=== PATIENT | female | born 1980 | race Caucasian/White ===

== ENCOUNTER → 2017-01-02 | Outpatient (CLI) | payer BC ==
--- NOTE | 2017-01-02 11:09 | DI ---
XR ELBOW COMPLETE MIN 3VW,01/02/2017 10:30 AM: Clinical History: Left elbow pain Previous Exam: None at this facility. Findings: 3 views of the left elbow are obtained, and demonstrate anatomic alignment without fractures. Surroun ding soft tissues are unremarkable. There is no low joint effusion identified. Impression: No fracture. Recommend followup imaging in 7-10 days if pain persists or worsens.
== END ==
LOC: ORTHO 10:41
PROVIDERS: ATTEND Orthopaedic Surgery
DX: M25.522 Pain in left elbow (principal); S53.402A Unspecified sprain of left elbow, initial encounter; W00.0XXA Fall on same level due to ice and snow, initial encounter
CPT/HCPCS: 73080

== ENCOUNTER → 2017-01-15 | Outpatient (CLI) | payer BC ==
--- NOTE | 2017-01-16 08:50 | DI ---
MRI LEFT ELBOW SCAN, 01/15/2017 1:54 PM: Clinical History: Left elbow pain. Previous Exam: None at this facility. Technique: Axial, coronal, and sagittal PD and fat saturated PD. SPIR. There is no soft tissue edema. A small joint effusion is present. The articular surfaces involving th e radius and ulna with the humerus are intact. No abnormal bone signal pattern is present. The tricep s tendon is normal. There is intermediate signal intensity with thickening of the radial collateral l igament representing a chronic tear. The common extensor tendon and common flexor tendon are intact. The ulnar nerve is normal. No abnormal signal pattern is present in the musculature. Reading: Small joint effusion with intact articular surfaces between the humerus and the radius and ulna. Ther e is thickening with intermediate signal intensity of the radial collateral ligament consistent with a chronic tear. The common flexor and extensor tendons and remaining ligamentous structures are intac t.
== END ==
LOC: MRI 13:39
PROVIDERS: ATTEND Orthopaedic Surgery
DX: M25.522 Pain in left elbow (principal); M25.422 Effusion, left elbow; S53.432A Radial collateral ligament sprain of left elbow, initial encounter
CPT/HCPCS: 73221

== ENCOUNTER → 2017-03-05 | Outpatient (CLI) | payer BC ==
[2017-03-05 17:09] LABS: BASOPHILS # (AUTO) 0.14 10*3/UL; BASOPHILS % (AUTO) 1.2 % (0-1); EOSINOPHILS # (AUTO) 0.54 10*3/UL; EOSINOPHILS % (AUTO) 4.6 % (0-8); HEMATOCRIT 41.4 % (37.0-47.0); HEMOGLOBIN 14.3 g/dL (12.0-16.0); LYMPHOCYTES # (AUTO) 3.61 10*3/uL; MEAN CORPUSCULAR HEMOGLOBIN 30.2 PG (27-31); MEAN CORPUSCULAR HGB CONC 34.5 g/dL (33-37); MEAN CORPUSCULAR VOLUME 87.5 FL (81-99); MEAN PLATELET VOLUME 10.1 FL (7.4-12.2); MONOCYTES # (AUTO) 0.97 10*3/UL (0.3-0.8); MONOCYTES % (AUTO) 8.3 % (5-15); NEUTROPHILS # (AUTO) 6.38 10*3/UL; NEUTROPHILS % (AUTO) 54.6 % (50-80); RED BLOOD COUNT 4.73 10^6/uL (4.20-5.40)
[2017-03-05 17:16] LABS: PLATELET MORPHOLOGY COMMENT NORMAL MORPHOLOGY (NORM); RBC MORPHOLOGY COMMENT NORMAL MORPHOLOGY (NORM); WBC MORPHOLOGY COMMENT NORMAL MORPHOLOGY (NORM)
== END ==
LOC: MOB LAB 16:26
PROVIDERS: ATTEND Nurse Practitioner Family
DX: R06.02 Shortness of breath (principal); E11.69 Type 2 diabetes mellitus with other specified complication; R50.81 Fever presenting with conditions classified elsewhere
CPT/HCPCS: 36415; 82947; 85025; 85379